=== PATIENT | male | born 1985 | race Two or more races ===

== ENCOUNTER 2020-12-15 13:55 | Emergency (ER) | payer OTHER ==
[~2020-12-15] VITALS: Ht 177.8 cm; Wt 99.8 kg
[2020-12-15 13:58] VITALS: BP 145/92
[2020-12-15] MEDS ORDERED: IBUPROFEN 800 MG TAB PO ONE (14:30)
[2020-12-15] MEDS ORDERED: TETANUS-DIPTH-ACEL PERTUSSIS 0.5ML SYR Tdap IM ONE (14:30)
== END 2020-12-15 15:01 | disposition home or self-care (01) ==
LOC: ER 13:55
DX: S01.01XA Laceration without foreign body of scalp, initial encounter (principal); W22.8XXA Striking against or struck by other objects, initial encounter; Y93.01 Activity, walking, marching and hiking; Y92.89 Other specified places as the place of occurrence of the external cause; Y99.8 Other external cause status
CPT/HCPCS: 12001; 90471; 90715